=== PATIENT | male | born 1965 | race Caucasian/White ===

== ENCOUNTER 2017-01-27 22:02 | Inpatient (IN) | payer OTHER ==
[2017-01-27] MEDS ORDERED: LORazepam 2 MG/ML Syringe IVPUSH ONE (22:21)
[2017-01-27] MEDS ORDERED: Ondansetron 4 MG/2 ML SDV IVPUSH STA (22:21)
[2017-01-27] MEDS ORDERED: Sodium Chloride 0.9% 1,000 ML IV ONE ×2 (22:21→23:59)
--- NOTE | 2017-01-27 22:41 | EDM.PDOC ---
ED HPI Behavioral Health - General Chief Complaint: Gastrointestinal Problem Stated Complaint: drinking problem Time Seen by Provider: 01/27/17 22:07 Source of Information: Reports: Patient Exam Limitations: Reports: Intoxication - History of Present Illness INITIAL COMMENTS - FREE TEXT/NARRATIVE: This patient is a 51 year old male that smells of ETOH and is intoxicated. Patient arrives via EMS. Patient reports that he is an alcoholic. Patent reports he has been on a binge the last 5 days. He reports he drinks "40" a day of vodka. Patient reports for the past 5 days he has had diarrhea. He reports he had his last drink 6 hours ago and 6 hours ago started with nausea and vomiting. He reports that he generally does not feel well. 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 Patient reports that he is homeless. He reports that his in 2014 from alcoholism. He reports he has no social or family support. He reports he has a brother maybe in [place], but has not talked to him in 20 years. The patient arrives actively vomiting. Patient denies headache, fever, cough, congestion, drainage, rash, urinary changes. Patient is alert and oriented. Currently patient denies tremors, hallucinations, suicidal ideation, homicideal ideation, seizures. Symptom Onset Date: 01/22/17 Duration of Symptoms: Reports: Day(s): (5), Getting worse Severity: moderate Associated Symptoms: Reports: anxiety, depression, ingestion: (ETOH). Denies: hallucinations, auditory, homicidal thoughts, hallucinations, visual, paranoia, suicidal thought (denies to me on exam.) - SAD Persons Scale (SPS) SPS Sex: Male SPS Age: Between 18-65 Years of Age SPS Depression: Yes SPS Previous Suicide Attempts: No SPS Alcohol Abuse/Drug Abuse: Yes SPS Rational Thinking Loss: No SPS Social Support Deficit: Yes SPS Organized Suicide Plan: No SPS No Spouse/Significant Other: Yes SPS Sickness: Yes SPS Sad Person Scale Score: 6 - Related Data Allergies Allergy/AdvReac Type Severity Reaction Status Date / Time No Known Allergies Allergy Verified 01/27/17 22:12 Social & Family History - Tobacco Use Years of Tobacco use: 20 ED ROS GENERAL - Review of Systems Review Of Systems: See Below Constitutional: Reports: no symptoms HEENT: Reports: No symptoms Respiratory: Reports: shortness of breath Cardiovascular: Reports: Palpitations Endocrine: Reports: no symptoms GI/Abdominal: Reports: Nausea, Vomiting. Denies: Hematemesis : Reports: no symptoms Musculoskeletal: Reports: no symptoms Skin: Reports: no symptoms Neurological: Reports: no symptoms. Denies: seizure, syncope, tingling, tremors , trouble speaking, weakness, change in speech Psychiatric: Reports: Depression. Denies: Agitation, Confusion, Hallucinations , Homicidal ideation, Suicidal ideation Hematologic/Lymphatic: Reports: no symptoms Immunologic: Reports: no symptoms ED EXAM, BEHAVIORAL HEALTH - Physical Exam Exam: See Below Exam Limited By: No limitations General Appearance: alert, WD/WN, other (vomiting. ) Eye Exam: bilateral eye: EOMI, normal inspection, PERRL Ears: normal external exam, normal canal, hearing grossly normal, normal TMs Nose: normal inspection, normal mucosa, no blood Throat/Mouth: Normal inspection, Normal lips, Normal teeth, Normal gums, Normal oropharynx, Normal voice, No airway compromise Head: atraumatic, normocephalic Neck: normal inspection, supple, non-tender, full range of motion Respiratory/Chest: no respiratory distress, lungs clear, normal breath sounds, no accessory muscle use, chest non-tender Cardiovascular: normal peripheral pulses, no edema, no gallop, no JVD, no murmur , no rub, tachycardia (130 on exam) GI/Abdominal: soft, non tender, no organomegaly, no distention, no abnormal bruit, no mass, abnormal bowel sounds: (hyperactive) Back Exam: normal inspection, full range of motion. No: CVA tenderness (L), CVA tenderness (R) Extremities: normal inspection, normal range of motion, non-tender, no pedal edema, normal capillary refill Neurological: alert, normal mood/affect, normal cognition, no motor/sensory deficits, oriented x 3, ataxia (gait). No: abnormal finger to nose, abnormal heel to douglass, abnormal sensation Psychiatric: alert, depressed mood. No: uncooperative, withdrawn, homicidal thoughts, suicidal plan, suicidal thoughts, auditory hallucinations, visual hallucinations, paranoid thoughts, threatening behavior Skin Exam: Warm, Dry, Intact, Normal color, No rash EKG INTERPRETATION EKG Date: 01/27/17 Time: 22:36 Rhythm: other (tachy) Rate (beats/min): 122 ST-T: normal Comparison: NA - no prior EKG COURSE, BEHAVIORAL HEALTH COMP - Course Vital Signs: Last Vital Signs Temp 99.1 F 01/27/17 22:05 Pulse 130 H 01/27/17 22:05 Resp 18 01/27/17 22:05 BP 146/95 H 01/27/17 22:05 Pulse Ox 97 01/27/17 22:05 Orders, Labs, Meds: Active Orders 24 hr Category Date Time Status Patient Status Manage Transfer [TRANSFER] Routine ADT 01/28/17 01:05 Ordered Cardiac Monitoring [RC] . DIRECTED Care 01/28/17 01:05 Active Chest 2V [CR] Stat Exams 01/27/17 22:20 Taken ETHANOL (MEDICAL) [REF] Stat Lab 01/27/17 22:19 Received Resuscitation Status Routine Resus Stat 01/28/17 01:06 Ordered Laboratory Tests 01/27/17 01/27/17 01/27/17 Range/Units 22:19 22:19 23:10 WBC 13.1 H (5.0-10.0) 10^3/uL RBC 4.90 (4.50-6.00) 10^6/uL Hgb 14.9 (14.0-18.0) g/dL Hct 43.2 (40.0-54.0) % MCV 88.2 (82.0-94.0) fL MCH 30.4 (27.0-32.0) pg MCHC 34.5 (33.0-38.0) g/dL RDW Coeff of Kia 14.8 (11.0-15.0) % Plt Count 271 (150-400) 10^3/uL Neut % (Auto) 68.1 (35-85) % Lymph % (Auto) 25.0 (10-55) % [place] % (Auto) 6.5 (0-16) % Eos % (Auto) 0.2 (0-5) % Baso % (Auto) 0.2 (0-3) % Neut # 8.95 H (1.80-7.00) 10^3/uL Lymph # 3.28 (1.00-4.80) 10^3/uL [place] # 0.85 H (0.00-0.80) 10^3/uL Eos # 0.02 (0.00-0.45) 10^3/uL Baso # 0.03 10^3/uL Sodium 142 (136-145) mEq/L Potassium 3.7 (3.5-5.0) mEq/L Chloride 100 (98-106) mEq/L Carbon Dioxide 24 (21-32) mmol/L BUN 9 (7-18) mg/dL Creatinine 0.9 (0.7-1.3) mg/dL Est Cr Clr Drug Dosing 114.17 mL/min Estimated GFR (MDRD) > 60 (>=60) mL/min Glucose 126 H (75-99) mg/dL Calcium 8.7 (8.4-10.1) mg/dL Magnesium 1.8 (1.8-2.4) mg/dL Total Bilirubin 0.7 (0.0-1.0) mg/dL AST 27 (15-37) U/L ALT 42 (12-78) U/L Alkaline Phosphatase 44 L (46-116) U/L Troponin I 0.050 (0.00-0.06) ng/mL Total Protein 8.2 (6.4-8.2) g/dL Albumin 4.3 (3.4-5.0) g/dL Urine Color Dark yellow (YELLOW) Urine Appearance Slightly cloudy (CLEAR) Urine pH 5.5 (4.5-8.0) Ur Specific [place] 1.022 H (1.003-1.020) Urine Protein 100 H (NEGATIVE) mg/dL Urine Glucose (UA) Negative (NEGATIVE) mg/dL Urine Ketones 15 H (NEGATIVE) mg/dL Urine Occult Blood Small H (NEGATIVE) Urine Nitrite Negative (NEGATIVE) Urine Bilirubin Negative (NEGATIVE) Urine Urobilinogen 0.2 (0.2-1.0) EU/dL Ur Leukocyte Esterase Negative (NEGATIVE) Urine RBC 5-10 H (0-5) /HPF Urine WBC Not seen (0-5) /HPF Ur Squamous Epith Cells Few H (NOT SEEN) /HPF Urine Bacteria Few H (NOT SEEN) /HPF Urine Mucus Moderate H (NOT SEEN) /HPF Urine Opiates Screen (NEGATIVE) Ur Oxycodone Screen (NEGATIVE) Urine Methadone Screen (NEGATIVE) Ur Barbiturates Screen (NEGATIVE) U Tricyclic Antidepress (NEGATIVE) Ur Phencyclidine Scrn (NEGATIVE) Ur Amphetamine Screen (NEGATIVE) U Methamphetamines Scrn (NEGATIVE) Urine MDMA Screen (NEGATIVE) U Benzodiazepines Scrn (NEGATIVE) Urine Cocaine Screen (NEGATIVE) U Marijuana (THC) Screen (NEGATIVE) 01/27/17 Range/Units 23:10 WBC (5.0-10.0) 10^3/uL RBC (4.50-6.00) 10^6/uL Hgb (14.0-18.0) g/dL Hct (40.0-54.0) % MCV (82.0-94.0) fL MCH (27.0-32.0) pg MCHC (33.0-38.0) g/dL RDW Coeff of Kia (11.0-15.0) % Plt Count (150-400) 10^3/uL Neut % (Auto) (35-85) % Lymph % (Auto) (10-55) % [place] % (Auto) (0-16) % Eos % (Auto) (0-5) % Baso % (Auto) (0-3) % Neut # (1.80-7.00) 10^3/uL Lymph # (1.00-4.80) 10^3/uL [place] # (0.00-0.80) 10^3/uL Eos # (0.00-0.45) 10^3/uL Baso # 10^3/uL Sodium (136-145) mEq/L Potassium (3.5-5.0) mEq/L Chloride (98-106) mEq/L Carbon Dioxide (21-32) mmol/L BUN (7-18) mg/dL Creatinine (0.7-1.3) mg/dL Est Cr Clr Drug Dosing mL/min Estimated GFR (MDRD) (>=60) mL/min Glucose (75-99) mg/dL Calcium (8.4-10.1) mg/dL Magnesium (1.8-2.4) mg/dL Total Bilirubin (0.0-1.0) mg/dL AST (15-37) U/L ALT (12-78) U/L Alkaline Phosphatase (46-116) U/L Troponin I (0.00-0.06) ng/mL Total Protein (6.4-8.2) g/dL Albumin (3.4-5.0) g/dL Urine Color (YELLOW) Urine Appearance (CLEAR) Urine pH (4.5-8.0) Ur Specific [place] (1.003-1.020) Urine Protein (NEGATIVE) mg/dL Urine Glucose (UA) (NEGATIVE) mg/dL Urine Ketones (NEGATIVE) mg/dL Urine Occult Blood (NEGATIVE) Urine Nitrite (NEGATIVE) Urine Bilirubin (NEGATIVE) Urine Urobilinogen (0.2-1.0) EU/dL Ur Leukocyte Esterase (NEGATIVE) Urine RBC (0-5) /HPF Urine WBC (0-5) /HPF Ur Squamous Epith Cells (NOT SEEN) /HPF Urine Bacteria (NOT SEEN) /HPF Urine Mucus (NOT SEEN) /HPF Urine Opiates Screen Negative (NEGATIVE) Ur Oxycodone Screen Negative (NEGATIVE) Urine Methadone Screen Negative (NEGATIVE) Ur Barbiturates Screen Negative (NEGATIVE) U Tricyclic Antidepress Negative (NEGATIVE) Ur Phencyclidine Scrn Negative (NEGATIVE) Ur Amphetamine Screen Negative (NEGATIVE) U Methamphetamines Scrn Negative (NEGATIVE) Urine MDMA Screen Negative (NEGATIVE) U Benzodiazepines Scrn Negative (NEGATIVE) Urine Cocaine Screen Negative (NEGATIVE) U Marijuana (THC) Screen Negative (NEGATIVE) Medications Discontinued Medications Generic Name Dose Route Start Last Admin Trade Name Mariposa PRN Reason Stop Dose Admin Sodium Chloride 1,000 mls @ 1,000 mls/hr 01/27/17 22:21 01/27/17 22:45 Normal Saline IV 01/27/17 23:20 1,000 mls/hr .BOLUS ONE Administration Sodium Chloride 1,000 mls @ 1,000 mls/hr 01/27/17 23:59 01/28/17 00:01 Normal Saline IV 01/28/17 00:58 1,000 mls/hr .BOLUS ONE Administration Sodium Chloride Confirm 01/27/17 23:53 01/28/17 00:08 Normal Saline Administered 01/27/17 23:54 Not Given Dose 1,000 mls @ as directed .ROUTE .STK-MED ONE Lorazepam 1 mg 01/27/17 22:21 01/27/17 22:51 Ativan IVPUSH 01/27/17 22:22 1 mg ONETIME ONE Administration Lorazepam 1 mg 01/28/17 00:00 01/28/17 00:04 Ativan IVPUSH 01/28/17 00:01 1 mg ONETIME ONE Administration Ondansetron HCl 4 mg 01/27/17 22:21 01/27/17 22:48 Zofran IVPUSH 01/27/17 22:22 4 mg NOW STA Administration Re-Assessment/Re-Exam: CXR: No infiltrate, no cardiomegaly, no pulmonary edema. 01/28/17 1230 Patient reports his palpitations have resolved. Discharge vs Psych Eval/Treatment:: 01/28/17 00:34 Patient HR is was 12o after 1 L NS. I gave another. After his 2nd L NS, HR is 104. I will admit this patient for alcohol withdraw, he is willing for admit. Departure - Departure Time of Disposition: 00:35 Disposition: Admitted As Inpatient 67 Condition: fair Clinical Impression: Alcohol abuse, Alcohol withdrawal delirium, acute, hyperactive, Tachycardia, Vomiting Alcohol intoxication Qualifiers: Complication of substance-induced condition: with unspecified complication Qualified Code(s): F10.129 - Alcohol abuse with intoxication, unspecified Dyspnea Qualifiers: Dyspnea type: shortness of breath Qualified Code(s): R06.02 - Shortness of breath Forms: ED Department Discharge - My Orders Last 24 Hours: My Active Orders 01/27/17 22:19 ETHANOL (MEDICAL) [REF] Stat 01/27/17 22:20 Chest 2V [CR] Stat 01/28/17 01:05 Patient Status Manage Transfer [TRANSFER] Routine Cardiac Monitoring [RC] . DIRECTED 01/28/17 01:06 Resuscitation Status Routine - Assessment/Plan Last 24 Hours: My Active Orders 01/27/17 22:19 ETHANOL (MEDICAL) [REF] Stat 01/27/17 22:20 Chest 2V [CR] Stat 01/28/17 01:05 Patient Status Manage Transfer [TRANSFER] Routine Cardiac Monitoring [RC] . DIRECTED 01/28/17 01:06 Resuscitation Status Routine Plan: PLEASE SEE RN NOTE FOR PFSH. PLEASE USE MY ER H&P ADMIT H&P.
[2017-01-27 22:47] LABS: CHLORIDE,CL 100 mEq/L (98-106); SODIUM,NA 142 mEq/L (136-145)
[2017-01-27] MEDS ORDERED: Sodium Chloride 0.9% 1,000 ML ONE (23:53)
[2017-01-28] MEDS ORDERED: LORazepam 2 MG/ML Syringe IVPUSH ONE
[2017-01-28] MEDS ORDERED: Acetaminophen/HYDROcodone 325-5 MG Tab PO PRN (01:59)
[2017-01-28] MEDS ORDERED: MVI, Adult with Vitamin K 10 ML, Folic Acid 1 MG, Thiamine 100 MG, Magnesium Sulfate 2 ... IV SCH ×5 (01:59)
[2017-01-28] MEDS ORDERED: Morphine 2 MG/ML Syringe IVPUSH PRN (01:59)
[2017-01-28] MEDS ORDERED: Acetaminophen 325 MG Tab PO PRN (01:59)
[2017-01-28] MEDS ORDERED: Ibuprofen 200 MG Tab PO PRN (01:59)
[2017-01-28] MEDS ORDERED: Sodium Chloride 0.9% 10 ML Syringe FLUSH PRN (01:59)
[2017-01-28] MEDS ORDERED: Thiamine 200 MG/2 ML MDV ONE (03:30)
[2017-01-28] MEDS ORDERED: Magnesium Sulfate (4.06 MEQ/ML) 1 GM/2 ML SDV ONE (03:31)
[2017-01-28] MEDS ORDERED: Folic Acid 50 MG/10 ML MDV ONE (03:31)
[2017-01-28] MEDS ORDERED: Sodium Chloride 0.9% 0 ML ONE (03:31)
[2017-01-28] MEDS: LORazepam 2 MG/ML Syringe IVPUSH SCH ×5 (03:56→22:22)
[2017-01-28] MEDS ORDERED: LORazepam 2 MG/ML Syringe IVPUSH SCH (09:00)
--- NOTE | 2017-01-28 09:03 | PN ---
DATE: 01/28/2017 S: A 51-year-old gentleman coming in with acute alcohol intoxication. I spent quite a bit of time talking to him. He has been on treatment 2 other times. He had been drinking up to 40 ounce of vodka daily. Financially unstable. Cellphone is disconnected. O: GENERAL: The patient is tremulous. NECK: Supple. CHEST: Clear. CARDIAC: Regular. ASSESSMENT: ALCOHOL WITHDRAWAL. P: We got his sponsors name, trying to get hold of him, get him back into [facility]. GUILLERMINA/CYNDY /[id number]
[2017-01-28] MEDS: Ondansetron 4 MG/2 ML SDV IV PRN (10:37)
[2017-01-28] MEDS: Promethazine 12.5 MG in Sodium Chloride 0.9% 50 ML IV PRN ×2 (12:08→19:55)
[2017-01-28] MEDS: Thiamine 100 MG Tab PO SCH (12:08)
[2017-01-28] MEDS: Temazepam 15 MG Cap PO PRN (22:41)
[2017-01-29] MEDS: LORazepam 2 MG/ML Syringe IVPUSH SCH ×2 (02:06→06:15)
[2017-01-29 08:24] LABS: CHLORIDE,CL 102 mEq/L (98-106); SODIUM,NA 137 mEq/L (136-145)
[2017-01-29] MEDS: Thiamine 100 MG Tab PO SCH (08:29)
--- NOTE | 2017-01-29 12:00 | PN ---
DATE: 01/29/2017 S: Juan Francisco Foley is in alcohol withdrawal. He is still quite shaky requiring IV Ativan. O: NECK: Supple. CHEST: Clear. CARDIAC: Regular. ASSESSMENT: ALCOHOL WITHDRAWAL. P: Hopefully one more day, then he can go home. EDGARDO /[id number]
[2017-01-29] MEDS: LORazepam 0.5 MG Tab PO PRN (12:45)
[2017-01-29] MEDS: amLODIPine 2.5 MG Tab PO SCH (15:57)
[2017-01-29] MEDS: Temazepam 15 MG Cap PO PRN (16:00)
[2017-01-30] MEDS: amLODIPine 2.5 MG Tab PO SCH ×2 (07:54→19:33)
[2017-01-30] MEDS: Thiamine 100 MG Tab PO SCH (07:54)
[2017-01-30 08:05] LABS: CHLORIDE,CL 102 mEq/L (98-106); SODIUM,NA 138 mEq/L (136-145)
[2017-01-30] MEDS: LORazepam 0.5 MG Tab PO PRN ×2 (08:26→19:34)
[2017-01-30] MEDS ORDERED: Metoprolol Succinate 25 MG Tab.ER PO ONE (09:55)
[2017-01-30] MEDS: Ondansetron 4 MG/2 ML SDV IV PRN (15:46)
[2017-01-30] MEDS: Temazepam 15 MG Cap PO PRN (19:35)
[2017-01-31] MEDS: LORazepam 0.5 MG Tab PO PRN (01:54)
--- NOTE | 2017-01-31 07:23 | PN ---
DATE: 01/30/2017 S: Juan Francisco Foley is in with alcohol withdrawal, somewhat better today. He is still taking Ativan, still got shaky. His blood pressure and pulse went up, so I added Toprol-XL 50 and that brought it down. O: NECK: Supple. CHEST: Clear. CARDIAC: Regular. ASSESSMENT: ALCOHOL WITHDRAWAL AND HYPERTENSION. P: Continue present therapy. GUILLERMINA/CYNDY /[id number]
[2017-01-31 07:49] LABS: CHLORIDE,CL 104 mEq/L (98-106); SODIUM,NA 139 mEq/L (136-145)
[2017-01-31] MEDS: amLODIPine 2.5 MG Tab PO SCH (07:52)
[2017-01-31] MEDS: Thiamine 100 MG Tab PO SCH (07:53)
[2017-01-31 07:54] VITALS: BP 123/89
[2017-01-31] MEDS ORDERED: Metoprolol Succinate 25 MG Tab.ER PO SCH (08:00)
--- NOTE | 2017-01-31 15:12 | DISCH ---
HOSPITAL COURSE: Juan Francisco Foley is a gentleman, who came in with alcohol withdrawal was admitted to the hospital and started on IV antibiotics, IV fluids, responded nicely. At the time of discharge, he had not taken any more Ativan. He was ready to go home. We had long discussions about no more drinking. He is going to get hold of a sponsor and has to go back in treatment. Lab; CBC base within normal limits. C-reactive protein mildly elevated secondary to withdrawal. Total bilirubin got 1.5, that did drop down and normal. Liver enzymes basically normal. At the time of discharge, he was alert and orientated, no further tremors. I did have to add Toprol-XL 50 to his regimen. I think partly because of the withdrawal, but that seemed to stabilize him. The patient is now discharged. Advised not to drink. He is going to get help to get back into [facility]. DISCHARGE MEDICATIONS: Include Toprol-XL/metoprolol XL 50 daily, amlodipine 5 mg b.i.d. DISCHARGE DIAGNOSIS: 1. ALCOHOL WITHDRAWAL. 2. HYPERTENSION. 3. DEPRESSION. GUILLERMINA/CYNDY /[id number]
== END 2017-01-31 08:50 | disposition home or self-care (01) | DRG 897 ==
LOC: CC.ED 22:02 → UNDOADMIN 01-28 00:40 → CC.ED 01-28 00:40 → CC.MS 01-28 00:40
PROVIDERS: ADMIT Nurse Practitioner; ATTEND General Practice
DX: F10.229 Alcohol dependence with intoxication, unspecified (principal); F10.239 Alcohol dependence with withdrawal, unspecified; Y90.7 Blood alcohol level of 200-239 mg/100 ml; R06.02 Shortness of breath; Z59.0 Homelessness; Z59.9 Problem related to housing and economic circumstances, unspecified; I10 Essential (primary) hypertension; F32.9 Major depressive disorder, single episode, unspecified
CPT/HCPCS: 36415; 71020; 80053; 80305; 81001; 83735; 84100; 84484; 85025; 86140; 93005; 96361; 96374; 96375; 96376; 99285; A9270-GY; G0480; J2060; J2270; J2405; J2550; J3411; J3475; J3490; J7030; J7050

== ENCOUNTER 2017-02-01 21:28 | Emergency (ER) | payer OTHER ==
--- NOTE | 2017-02-01 22:30 | EDM.PDOC ---
ED HISTORY OF PRESENT ILLNESS - General Chief Complaint: Cardiovascular Problem Stated Complaint: "HEART BEATING FAST" Time Seen by Provider: 02/01/17 21:48 Source of Information: Reports: Patient, EMS, Police History Limitations: Reports: No limitations, Intoxication - History of Present Illness INITIAL COMMENTS - FREE TEXT/NARRATIVE: pt in with c/o has been drinking "a lot" today, advised he does not want to live , will not tell me how he would kill self, advised is hearing voices but will not tell me if they are telling him ti kill himself. pt was admitted last friday for alcoholism, and was dc on denies HI, pt advised "my heart has been beating fast", denies cp sob or palpitations now. Improves with: Reports: None Worsens with: Reports: None Associated Symptoms (General): Reports: nausea/vomiting. Denies: chest pain, cough, fever/chills, headaches, rash, shortness of breath, syncope, weakness Treatments COIL BINDER: Reports: Other (see below) (none, has not taken any of the meds that laverne was dc on) - Related Data Allergies/ADRs: Allergies Allergy/AdvReac Type Severity Reaction Status Date / Time No Known Allergies Allergy Verified 02/01/17 21:39 Home Meds: Home Meds amLODIPine [Norvasc] 5 mg PO BID 01/29/17 [History] Metoprolol Succinate [Toprol XL] 50 mg PO DAILY tab.er 01/31/17 [Rx] Past Medical History Cardiovascular History: Reports: Hypertension Respiratory History: Reports: Asthma Musculoskeletal History: Reports: Arthritis Psychiatric History: Reports: Anxiety, Depression Social & Family History - Family History Cardiac: Reports: Hypertension - Tobacco Use Smoking Status *Q: Never Smoker Years of Tobacco use: 20 Second Hand Smoke Exposure: No - Caffeine Use Caffeine Use: Reports: None - Alcohol Use Days Per Week of Alcohol Use: 7 Number of Drinks Per Day: 10 Total Drinks Per Week: 70 - Recreational Drug Use Recreational Drug Use: No - Living Situation & Occupation Living situation: Reports: single, alone (in his tractor trailor) ED ROS GENERAL - Review of Systems Review Of Systems: See Below Constitutional: Reports: no symptoms. Denies: fever, chills HEENT: Reports: No symptoms Respiratory: Reports: no symptoms. Denies: shortness of breath Cardiovascular: Denies: Chest pain, Blood pressure problem, Dyspnea on exertion , Edema, Lightheadedness, Orthopnea, Palpitations, PND, Syncope Endocrine: Reports: no symptoms GI/Abdominal: Reports: Nausea, Vomiting. Denies: Abdominal pain, Black stool, Bloody stool, Diarrhea, Difficulty swallowing, Distension, Hematemesis, Hematochezia : Reports: no symptoms Musculoskeletal: Reports: no symptoms Skin: Reports: no symptoms. Denies: bruising, rash Neurological: Reports: no symptoms. Denies: confusion, dizziness, headache, seizure, trouble speaking, difficulty walking, weakness, change in speech, gait disturbance Psychiatric: Reports: Depression, Suicidal ideation (see HPI) Hematologic/Lymphatic: Reports: no symptoms Immunologic: Reports: no symptoms ED EXAM, GENERAL - Physical Exam Exam: See Below Exam Limited By: No limitations General Appearance: alert, WD/WN, other (depressed and crying) Ears: normal external exam Nose: normal inspection Throat/Mouth: Normal inspection, Normal voice, No airway compromise Head: atraumatic, normocephalic Neck: normal inspection, supple, non-tender, full range of motion Respiratory/Chest: no respiratory distress, lungs clear, normal breath sounds Cardiovascular: normal peripheral pulses, regular rate, rhythm, no edema, no murmur Peripheral Pulses: 2+: radial (L), radial (R) GI/Abdominal: soft, non tender Back Exam: normal inspection, full range of motion Extremities: normal inspection, normal range of motion, non-tender, no pedal edema, normal capillary refill Neurological: alert, oriented, normal cognition, normal gait, no motor/sensory deficits Psychiatric: depressed mood, tearful Skin Exam: Warm, Dry, Intact, Normal color, No rash Lymphatic: no adenopathy EKG INTERPRETATION EKG Date: 02/01/17 Time: 21:49 Rhythm: NSR Rate (beats/min): 111 [place]: normal P-wave: present QRS: normal ST-T: normal QT: normal EKG Interpretation Comments: Stach Course - Vital Signs Last Recorded V/S: Last Vital Signs Temp 37.1 C 02/01/17 23:00 Pulse 128 H 02/01/17 23:00 Resp 20 02/01/17 23:00 BP 136/105 H 02/01/17 23:00 Pulse Ox 96 02/01/17 23:00 - Orders/Labs/Meds Meds: Medications Discontinued Medications Generic Name Dose Route Start Last Admin Trade Name Mariposa PRN Reason Stop Dose Admin Clonidine HCl 0.1 mg 02/01/17 23:30 Catapres PO 02/01/17 23:31 ONETIME ONE Departure - Departure Time of Disposition: 23:23 Disposition: DC/Tfer to Psych Hosp/Unit 65 Reason for Transfer *Q: Primary PCI Indicated Condition: good Clinical Impression: Alcoholism, Suicidal ideation, Depression, Hypertension Forms: Interfacility Transfer [facility] ED Communication - ED Communication Date/Time Date: 02/01/17 Time Called: 21:55 - Discussed Case With (1) Discussed Case With (1): Mental Health Professional Person/s Notified (1): donis (mental health screener) - Conversation Summary Admitting Provider Agreed to Patient's Admission: Yes Summary Comment: 2154, discussed the pt with Donis the mental health screener in [place], she spoke with the pt as well and then back with me and advised she would call the [facility] and discuss the pt with them and call me back. 2234 Donis called back and advised me to call Tom Bowers the admitting provider in 15 minutes and at that point it will be determined if the pt can be accepted. 2302 spoke with Tom Bowers the provider that will accept the pt at the [facility], however, he advised that the pt will need to go to [facility] ED and have a tylenol, asa, and alcohol level as these can not be completed here tonight. [address] Pal Hill the ED doctor at [place] and he will accept the pt there and then transfer him to the [facility] when stable. [facility] department called and will take him there. - Problem List & Annotations (1) Alcoholism SNOMED Code(s): 2278217 Code(s): F10.20 - ALCOHOL DEPENDENCE, UNCOMPLICATED Status: Acute Priority: High Current Visit: Yes Onset Date: ~02/01/17 (2) Depression SNOMED Code(s): 14951333 Code(s): F32.9 - MAJOR DEPRESSIVE DISORDER, SINGLE EPISODE, UNSPECIFIED Status: Acute Priority: High Current Visit: Yes Onset Date: ~02/01/17 Qualifiers: Major depression recurrence: recurrent (3) Suicidal ideation SNOMED Code(s): 5567257, 849476701 Code(s): R45.851 - SUICIDAL IDEATIONS Status: Acute Priority: High Current Visit: Yes Onset Date: ~02/01/17 (4) Hypertension SNOMED Code(s): 54701015 Code(s): I10 - ESSENTIAL (PRIMARY) HYPERTENSION Status: Acute Priority: High Current Visit: No Onset Date: ~02/01/17 Qualifiers: Hypertension type: essential hypertension Qualified Code(s): I10 - Essential (primary) hypertension - Problem List Review Problem List Initiated/Reviewed/Updated: Yes
[2017-02-01] MEDS ORDERED: cloNIDine 0.1 MG Tab PO ONE (23:30)
[2017-02-01 23:32] VITALS: BP 136/105
== END 2017-02-01 23:59 ==
LOC: CC.ED 21:28
DX: F32.9 Major depressive disorder, single episode, unspecified (principal); I10 Essential (primary) hypertension; F10.20 Alcohol dependence, uncomplicated; J45.909 Unspecified asthma, uncomplicated; F41.9 Anxiety disorder, unspecified; Z79.899 Other long term (current) drug therapy
CPT/HCPCS: 99285; A9270